=== PATIENT | female | born 2000 | race African-American/Black ===

== ENCOUNTER 2019-04-03 19:46 | Emergency (ER) | payer OTHER ==
[2019-04-03] MEDS ORDERED: Lidocaine 1% MPF ** 5 ML VIAL INJ ONE (20:17)
--- NOTE | 2019-04-03 20:32 | ED ---
Laceration/Wound HPI - HPI Summary HPI Summary: 18-year-old female presents with laceration between her fourth and fifth finger of right hand today. States she cut it when doing dishes. There is no active bleeding. She has full ROM of fingers. Tetanus up-to-date. Has no medical conditions. She is a [employer] student. - History of Current Complaint Stated Complaint: HAND LAC PER PT Time Seen by Provider: 04/03/19 20:16 Pain Intensity: 0 - Allergy/Home Medications Allergies/Adverse Reactions: Allergies Allergy/AdvReac Type Severity Reaction Status Date / Time No Known Allergies Allergy Verified 04/03/19 19:49 PMH/Surg Hx/FS Hx/Imm Hx Endocrine/Hematology History: Denies: Hx Anticoagulant Therapy Respiratory History: Denies: Hx Asthma Infectious Disease History: No Infectious Disease History: Denies: Traveled Outside the [place] in Last 30 Days - Family History Known Family History: Positive: Non-Contributory - Social History Lives: With Family Smoking Status (MU): Never Smoked Tobacco Review of Systems Negative: Fever Negative: Chest Pain Negative: Shortness Of Breath Positive: Other - laceration of right 5th finger All Other Systems Reviewed And Are Negative: Yes Physical Exam Triage Information Reviewed: Yes Vital Signs On Initial Exam: Initial Vitals Temp Pulse Resp BP Pulse Ox 98.6 F 62 16 124/77 99 04/03/19 19:48 04/03/19 19:48 04/03/19 19:48 04/03/19 19:48 04/03/19 19:48 Vital Signs Reviewed: Yes Appearance: Positive: Well-Appearing Skin: Positive: Warm, Dry, Other - 1cm superficial laceration to 5th finger in between 4-5th finger Head/Face: Positive: Normal Head/Face Inspection Eyes: Positive: Normal, Conjunctiva Clear ENT: Positive: Pharynx normal Respiratory/Lung Sounds: Positive: Clear to Auscultation, Breath Sounds Present Cardiovascular: Positive: Normal, RRR Musculoskeletal: Positive: Strength/ROM Intact - right hand, Other - good pulses Neurological: Positive: Normal Psychiatric: Positive: Normal Procedures - Laceration/Wound Repair 1 Location: Other - right hand Description: Irregular Length, Depth and Shape: 1cm superficial in between two fingers Irrigated w/ Saline (ccs): 300 Closure: Skin Adhesive, SteriStrips Sterile Dressing Applied?: No - connore and telfa Diagnostics - Vital Signs Vital Signs Temp Pulse Resp BP Pulse Ox 04/03/19 19:48 98.6 F 62 16 124/77 99 - Laboratory Lab Statement: Any lab studies that have been ordered have been reviewed, and results considered in the medical decision making process. Laceration Repair Course/Dx - Course Course Of Treatment: 18-year-old female presents with laceration between her fourth and fifth finger of right hand today. States she cut it when doing dishes. There is no active bleeding. She has full ROM of fingers. Tetanus up- to-date. Has no medical conditions. She is a [employer] student. On exam has 1 superficial laceration between fourth and fifth finger. Cleaned area and place glue. elenita taped fingers together. Told to keep area clean and dry. Patient understands agrees plan. - Differential Dx Differental Diagnoses: Abrasion, Avulsion, Laceration - Clinical Impression Provider Diagnoses: Laceration of right hand Discharge - Sign-Out/Discharge Documenting (check all that apply): Patient Departure Patient Received Moderate/Deep Sedation with Procedure: No - Discharge Plan Condition: Good Disposition: HOME Patient Education Materials: Skin Adhesive Care (ED) Referrals: No Primary Care Phys,NOPCP [Primary Care Provider] - Additional Instructions: Take Tylenol or ibuprofen for pain as needed every 6 hours Keep dry for 24 hours Glue will fall off on own tape fingers together for next 3 days Avoid scrubbing area Return to ED if develop any signs of infection or any new or worsening symptoms - Billing Disposition and Condition Condition: GOOD Disposition: Home
[2019-04-03 21:02] VITALS: BP 117/75
== END 2019-04-03 20:50 | disposition home or self-care (01) ==
LOC: ED 19:46
DX: S61.411A Laceration without foreign body of right hand, initial encounter (principal); W26.9XXA Contact with unspecified sharp object(s), initial encounter; Y93.G1 Activity, food preparation and clean up; Y92.9 Unspecified place or not applicable
CPT/HCPCS: 12001; 99282